=== PATIENT | male | born 1955 | race Caucasian/White ===

== ENCOUNTER 2018-03-29 16:19 | Emergency (ER) | payer MEDICAID, MEDICARE ==
[2018-03-29 16:39] VITALS: BP 127/45
[2018-03-29] MEDS ORDERED: Tetan/Diph/Pertus SYR(Tdap)* 0.5 ML SYR(BOOSTRIX) use SYR IM ONE (16:46)
--- NOTE | 2018-03-29 17:12 | RAD ---
INDICATION: Car battery versus left great toe 2 days earlier TECHNIQUE: 3 views of the left great toe were obtained. FINDINGS: On the lateral view image there is apparent soft tissue swelling overlying the left great toe interphalangeal joint. The visualized bones are normal alignment. Joint spaces appear maintained. No fracture is seen. IMPRESSION: Appearance of soft tissue swelling overlying the dorsal left great toe interphalangeal joint in this otherwise normal exam.
--- NOTE | 2018-03-29 17:30 | UC ---
Lower Extremity/Ankle HPI - HPI Summary HPI Summary: dropped battery on left foot, great toe - History of Current Complaint Chief Complaint: UCLowerExtremity Stated Complaint: LEFT FOOT INJURY Time Seen by Provider: 03/29/18 16:38 Hx Obtained From: Patient Onset/Duration: Sudden Onset Severity Initially: Moderate Severity Currently: Moderate Pain Intensity: 7 Aggravating Factor(s): Standing, Ambulation Alleviating Factor(s): Rest, Elevation Able to Bear Weight: Yes - Risk Factors Gout Risk Factors: Negative DVT Risk Factors: Negative Septic Arthritis Risk Factor: Negative - Allergies/Home Medications Allergies/Adverse Reactions: Allergies Allergy/AdvReac Type Severity Reaction Status Date / Time SEAN Inhibitors Allergy Unknown Verified 03/29/18 16:40 Reaction Details amoxicillin Allergy Unknown Verified 03/29/18 16:40 Reaction Details Home Medications: Home Medications Albuterol Sulfate [Ventolin Hfa] 2 puff INH Q6H 03/29/18 [History Confirmed ] Albuterol/Ipratropium NEB.LOLY* [Duoneb (Albuterol 2.5 MG/Ipratropium 0.5 MG)] 1 each INH Q12HR 03/29/18 [History Confirmed 03/29/18] Aspirin [Ecotrin Low Strength] 81 mg PO DAILY 03/29/18 [History Confirmed ] Baclofen TAB* [Lioresal TAB*] 20 mg PO BID 03/29/18 [History Confirmed 03/29/18 ] Clopidogrel TAB* [Plavix TAB*] 75 mg PO DAILY 03/29/18 [History Confirmed ] Cyclobenzaprine (NF) [Cyclobenzaprine 5 MG (NF)] 10 mg PO TID 03/29/18 [History Confirmed 03/29/18] Docusate Sodium [Colace] 100 mg PO DAILY 03/29/18 [History Confirmed 03/29/18] Esomeprazole Magnesium [Nexium] 40 mg PO DAILY 03/29/18 [History Confirmed 03/29] Gabapentin [Neurontin] 300 mg PO DAILY 03/29/18 [History Confirmed 03/29/18] Ibuprofen 600 mg PO Q8H 03/29/18 [History Confirmed 03/29/18] Ipratropium HFA INHALER(NF) [Atrovent Hfa Inhaler(NF)] 2 puff INH Q6H 03/29/18 [ History Confirmed 03/29/18] Lovastatin [Altoprev] 40 mg PO DAILY 03/29/18 [History Confirmed 03/29/18] Magnesium Oxide [Magnesium] 400 mg PO DAILY 03/29/18 [History Confirmed 03/29/18 ] Metformin HCl [Fortamet] 500 mg PO DAILY 03/29/18 [History Confirmed 03/29/18] Mupirocin 2% CREAM* [Bactroban 2% CREAM*] 1 applic TOPICAL DAILY 03/29/18 [ History Confirmed 03/29/18] Nebivolol TAB (NF) [Bystolic TAB (NF)] 10 mg PO DAILY 03/29/18 [History Confirmed 03/29/18] Potassium Chloride [Klor-Con] 20 meq PO BID 03/29/18 [History Confirmed 03/29/18 ] Pramipexole Di-HCl [Pramipexole Dihydrochloride] 1 mg PO DAILY 03/29/18 [ History Confirmed 03/29/18] Primidone [Mysoline] 250 mg PO DAILY 03/29/18 [History Confirmed 03/29/18] Ranolazine (Nf) [Ranexa] 500 mg PO BID 03/29/18 [History Confirmed 03/29/18] Tamsulosin HCl [Flomax] 0.4 mg PO DAILY 03/29/18 [History Confirmed 03/29/18] Torsemide TAB* [Demadex 20 MG*] 20 mg PO DAILY 03/29/18 [History Confirmed 03/29] Triamcinolone 0.1% Oint (NF) [Triamcinolone Acetonide] 1 applic TOPICAL BID [History Confirmed 03/29/18] Valsartan TAB* [Diovan TAB*] 160 mg PO DAILY 03/29/18 [History Confirmed ] Zolpidem Tartrate [Ambien] 10 mg PO DAILY 03/29/18 [History Confirmed 03/29/18] hydrOXYzine HCl [Hydroxyzine HCl] 50 mg PO TID 03/29/18 [History Confirmed 03/29] PMH/Surg Hx/FS Hx/Imm Hx Previously Healthy: Yes Endocrine History: Diabetes, Dyslipidemia Cardiovascular History: Hypertension Psychological History: Depression - Surgical History Surgical History: Yes Surgery Procedure, Year, and Place: HERNIA REPAIR X2. APPENDECTOMY. REMOVAL OF SHRAPNEL MANY TIMES - Family History Known Family History: Positive: Diabetes - Social History Alcohol Use: None Substance Use Type: Marijuana Smoking Status (MU): Heavy Every Day Tobacco Smoker Amount Used/How Often: 1 PPD Review of Systems Skin: Bruising Eyes: Negative ENT: Negative Respiratory: Negative Cardiovascular: Chest Pain Gastrointestinal: Negative Genitourinary: Negative Motor: Negative Neurovascular: Negative Musculoskeletal: Negative Is Patient Immunocompromised?: Yes - diabetic All Other Systems Reviewed And Are Negative: Yes Physical Exam Triage Information Reviewed: Yes Appearance: Well-Appearing, Other: - unkempt Vital Signs: Initial Vital Signs Temp 37.1 C 03/29/18 16:34 Pulse 69 03/29/18 16:34 Resp 20 03/29/18 16:34 BP 127/45 03/29/18 16:34 Pulse Ox 97 03/29/18 16:34 Eye Exam: Normal Eyes: Positive: Conjunctiva Clear ENT Exam: Normal ENT: Positive: Normal ENT inspection Neck exam: Normal Neck: Positive: Supple Respiratory Exam: Normal Respiratory: Positive: Chest non-tender Cardiovascular Exam: Normal Cardiovascular: Positive: RRR Abdominal Exam: Normal Abdomen Description: Positive: Nontender Musculoskeletal Exam: Normal Neurological: Positive: Alert, Other: - decreased sensation to light touch consistent with diabetic peripheral neuropathy Skin Exam: Other - large ecchymosis with blister left great toe, no evidence of ulceration seen, small amount of weeping Lower Extremity Course/Dx - Course Course Of Treatment: blister, foot cleaned, dressed. tdap given - Differential Dx/Diagnosis Provider Diagnoses: crush injury left great toe Discharge - Sign-Out/Discharge Documenting (check all that apply): Patient Departure - Discharge Plan Condition: Good Disposition: HOME Patient Education Materials: Acute Wound Care (ED) Referrals: Vianney Ballard MD [Primary Care Provider] - Additional Instructions: follow up with primary care early next week , inspect wound daily keep clean , dressed - Billing Disposition and Condition Condition: GOOD Disposition: Home
== END 2018-03-29 17:46 | disposition home or self-care (01) ==
LOC: UCCORT 16:19
DX: S97.112A Crushing injury of left great toe, initial encounter (principal); E11.9 Type 2 diabetes mellitus without complications; E78.5 Hyperlipidemia, unspecified; I10 Essential (primary) hypertension; F17.210 Nicotine dependence, cigarettes, uncomplicated; F32.9 Major depressive disorder, single episode, unspecified; Z88.8 Allergy status to other drugs, medicaments and biological substances; Z79.84 Long term (current) use of oral hypoglycemic drugs; Z79.899 Other long term (current) drug therapy; Z79.82 Long term (current) use of aspirin; Z88.0 Allergy status to penicillin; W20.8XXA Other cause of strike by thrown, projected or falling object, initial encounter; Y92.9 Unspecified place or not applicable
CPT/HCPCS: 87070; 87205; 90715; 99213; G0463